=== PATIENT | female | born 1970 | race Caucasian/White ===

== ENCOUNTER 2025-03-26 12:18 | Observation (INO) ==
[2025-03-26] MEDS ORDERED: ONDANSETRON HCL/PF 4 MG/2 ML VIAL ONE (12:45)
[2025-03-26] MEDS ORDERED: 0.9 % SODIUM CHLORIDE 1000 ML 1,000 ML IV ONE (12:45)
--- NOTE | 2025-03-26 12:45 | Emergency Department Note ---
HPI - General Adult General Chief complaint: Altered Mental Status Stated complaint: Dizziness & Nausea Time Seen by Provider: 03/26/25 12:43 Source: patient and EMS Mode of arrival: ambulance Limitations: no limitations History of Present Illness HPI narrative: This is a 54 year old female patient that presents to the ER with c/o dizziness, lower back pain, abdominal pain, N/V and feeling dehydrated. 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 Patient denies any chest pain, SOB, fever, chills, numbness, tingling, weakness or diarrhea Onset (ago): hour(s) (3) Location: Reports back and abdomen Radiation: Reports non-radiation Severity: mild Quality: Reports aching Pain Consistency: Reports constant Relieving factors: Reports none Exacerbating factors: Reports none Associated symptoms: Reports nausea/vomiting Treatments prior to arrival: Reports other (labetalol ) Related Data Previous Rx's Medication Instructions Recorded diclofenac sodium 1 % topical gel 4 g topical QID #50 grams 03/23/25 (Voltaren Arthritis Pain) Allergies Allergy/AdvReac Type Severity Reaction Status Date / Time aspirin Allergy Verified 03/26/25 12:39 ketorolac (From Toradol) AdvReac Mild Vomiting Verified 03/26/25 12:39 Review of Systems Status of ROS 10 or more systems reviewed and unremark able except as noted in history and below Constitutional Denies: fever, chills, change in weight, fatigue, malaise, night sweats or change in sleep pattern Eyes Denies: change in vision, blurry vision, blind spots, light sensitivity, eye discomfort or eye discharge Ears, nose, mouth, and throat Denies: throat pain, neck pain, throat swelling, difficulty swallowing, hoarseness, mouth pain or swelling of lips/tongue Cardiovascular Reports: lightheadedness; Denies: chest pain, palpitations, edema, swelling of feet/ankles or shortness of breath with exertion Respiratory Denies: shortness of breath, cough, wheezing, stridor, pain on inspiration, change in phlegm color or coughing up blood Gastrointestinal Reports: abdominal pain, nausea and vomiting; Denies: coffee grounds in vomit, heartburn, diarrhea, constipation or bloating Genitourinary Denies: painful urination, urinary frequency, urinary urgency, urinary incontinence or blood in urine Musculoskeletal Reports: back pain (lower) Integumentary/Breast Denies: rash, itching, redness, skin pain, skin tenderness, skin swelling, sores or changes in skin color Neurological Reports: dizziness; Denies: headache, numbness in extremities, weakness in extremities, lack of coordination, vertigo or confusion Psychiatric Denies: anxiety, mood swings, panic attacks, change in sleep pattern, hopelessness or loss of interest Endocrine Denies: excessive urination, excessive thirst, fatigue, cold intolerance, excessive sweating or flushing Hematologic/Lymphatic Denies: easy bruising or easy bleeding Allergic/Immunologic Denies: hives, throat swelling, tongue swelling, facial swelling or wheezing PFSH PFSH Medical History Hypertension Hyperlipidemia Chronic back pain Surgical History H/O tubal ligation Social History Smoking status: current every day smoker Non-prescribed substance use: denies use What is your current living situation: I presently have a place to live Problems where you live: no known problems Feel stressed/tense/nervous/anxious/difficulty sleeping: not at all Due to disability, difficulty making decisions: No Exam Constitutional: normal general appearance and no apparent distress Vital Signs - 24 hr 03/26/25 12:18 03/26/25 12:31 03/26/25 13:23 Temperature 98.2 F Pulse Rate 80 76 71 Respiratory Rate 16 20 20 Blood Pressure 165/80 165/80 147/78 Pulse Oximetry 95 93 L 96 Oxygen Delivery Me thod Room Air Room Air Room Air HENMT: normocephalic, head/scalp atraumatic, hearing grossly normal bilaterally, external ears normal, EACs normal, nasal mucous membranes normal, external nose normal, oral mucous membranes normal and oropharynx normal Eyes: PERRL, EOMs intact bilaterally, conjunctivae normal and no scleral icterus Neck/C-Spine: visual inspection normal and trachea midline Lymph: no lymphadenopathy noted Chest: inspection of chest normal Respiratory: breath sounds equal bilaterally, normal respiratory effort, clear to auscultation bilaterally, no wheezes, no rales, no retractions, no use of accessory muscles and chest percussion normal Cardiovascular: normal heart rate noted, regular rhythm noted, no gallop, no rub, no murmur, no JVD, no clicks, peripheral pulses 2+ throughout, no bruits noted and no additional abnormal heart sounds Gastrointestinal: abdomen normal to inspection, abdomen soft to palpation, tender to palpation (diffuse), nontender to percussion, nondistended, normoactive bowel sounds, no hepatosplenomegaly, no masses, no pulsatile mass, no ascites and no hernia Genitourinary: no CVA tenderness Back/Pelvis: spine normal to inspection Extremities: normal to inspection, normal to palpation, no tenderness, full ROM, no joint enlargement and no deformity Neurology: it operations manager II-XII intact, no movement abnormality noted, no focal motor deficit noted, no sensory deficits noted, gait normal, speech normal, coordination normal, no pronator drift noted, no fasciculations noted and GCS normal Psychiatry: mental status grossly normal, oriented x3, thought process normal, cooperative and affect normal Skin: skin color normal Course Course Hospital Course: 1338: due to critically low potassium and N/V will admit patient to the medical floor for further evaluation and treatment. VSS, no s/s of acute distress noted. Patient also sates her lower back is still painful. Vital Signs Vital signs: Vital Signs Temperature 98.2 F 03/26/25 12:18 Pulse Rate 80 03/26/25 12:18 Respiratory Rate 16 03/26/25 12:18 Blood Pressure 165/80 03/26/25 12:18 Pulse Oximetry 95 03/26/25 12:18 Oxygen Delivery Method Room Air 03/26/25 12:18 Temperature 98.2 F 03/26/25 12:18 Pulse Rate 71 03/26/25 13:23 Respiratory Rate 20 03/26/25 13:23 Blood Pressure 147/78 03/26/25 13:23 Pulse Oximetry 96 03/26/25 13:23 Oxygen Delivery Method Room Air 03/26/25 13:23 Medical Decision Making Differential Diagnosis Differential Diagnosis: viral illness Medical Records Medical records reviewed: Yes I reviewed the patient's medical records Lab Data Lab results reviewed: Yes I reviewed the patient's lab results Labs: Lab Results 03/26/25 03/26/25 Range/Units 12:38 13:40 WBC 11.3 H (4.3-9.3) K/uL RBC 4.6 (4.00-5.50) M/uL Hgb 14.1 (12.5-15.8) gm/dL Hct 42.2 (35.9-46.7) % MCV 91.0 (81.0-93.7) fl MCH 30.5 (27.6-32.2) pg MCHC 33.5 (33.1-35.3) g/dl RDW 13.8 (11.4-14.2) % Plt Count 269 (152-353) K/uL MPV 9.2 (6.9-10.8) fl Gran % 82.8 H (47.8-71.3) % Lymph % (Auto) 13.1 L (20.0-43.0) % [place] % (Auto) 3.3 L (3.6-9.8) % Eos % (Auto) 0.5 (0.4-2.8) % Baso % (Auto) 0.3 (0.1-0.85) Lymph # (Auto) 1.5 (1.1-3.1) [place] # (Auto) 0.4 L (1.1-3.1) Eos # (Auto) 0.1 (0.0-0.2) Baso # (Auto) 0.0 (0.0-0.1) Absolute Gran (auto) 9.4 H (2.3-6.0) Sodium 142 (136-145) mmol/L Potassium 2.9 L (3.6-5.2) mmol/L Chloride 107.0 (98-107) mmol/L Carbon Dioxide 25 (21-32) mmol/L Anion Gap 10.0 (4-14) mEq/L BUN 8 (7-18) mg/dL Creatinine 0.9 (0.6-1.3) mg/dL Estimated GFR 75.0 (>59.9) Glucose 124 H (70-110) mg/dL Lactic Acid 1.3 (0.27-1.43) mmol/L Calcium 9.4 (8.5-10.1) mg/dL Total Bilirubin 0.23 (0.0-1.0) mg/dL AST 17 (15-37) U/L ALT 18 L (30-65) U/L Alkaline Phosphatase 122 (50-136) U/L Total Creatine Kinase 150 (26-192) U/L Troponin I High Sens 4.10 (4.0-60.4) ng/L Total Protein 7.1 (6.4-8.2) g/dL Albumin 3.8 (3.4-5.0) g/dL Lipase 33.0 (16.0-77.0) U/L Urine Color Pale yellow (STRAW/YELL.) Urine Appearance Clear (CLEAR) Ur Specific [place] 1.005 (1.001-1.035) Urine Protein Negative (NEGATIVE) Urine Glucose (UA) Normal (NORMAL) Urine Ketones Negative (NEGATIVE) Urine Occult Blood Negative (NEG - TRACE) Urine Nitrite Negative (NEGATIVE) Urine Bilirubin Negative (NEGATIVE) Urine Urobilinogen Normal (NORMAL) Ur Leukocyte Esterase Negative (NEGATIVE) Fluid pH 6.5 (5 - 9) Imaging Data CT scan - head: Attestation: I have reviewed the pertinent imaging results. ECG Data Attestation: I have reviewed the pertinent ECG results. Discharge Plan Discharge Patient Disposition: Admitted As Observation Condition: Stable Clinical Impression: Acute hypokalemia, Dizziness, Low back pain, Nausea and vomiting Time of Disposition: 13:42
[2025-03-26 12:46] LABS: Basophils%(Percent) Auto 0.3 (0.1-0.85); Eosinophils#(Absolute)Auto 0.1 (0.0-0.2); Eosinophils%(Percent) Auto 0.5 % (0.4-2.8); Granulocytes % - Auto 82.8 % (47.8-71.3); Granulocytes#(Absolute)- Auto 9.4 (2.3-6.0); Hematocrit 42.2 % (35.9-46.7); Monocytes #(Absolute)- Auto 0.4 (1.1-3.1); Monocytes %(Percent)- Auto 3.3 % (3.6-9.8); Platelet Count 269 K/uL (152-353); White Blood Count 11.3 K/uL (4.3-9.3)
[2025-03-26] MEDS: ONDANSETRON HCL/PF 4 MG/2 ML VIAL INJ STA ×2 (12:46→13:53)
[2025-03-26] MEDS: 0.9 % SODIUM CHLORIDE 1000 ML 1,000 ML IV STA (12:46)
[2025-03-26 12:56] LABS: Potassium 2.9 mmol/L (3.6-5.2)
[2025-03-26] MEDS ORDERED: ACETAMINOPHEN 500 MG TABLET ONE (12:56)
[2025-03-26] MEDS: ACETAMINOPHEN 500 MG TABLET PO ONE (12:58)
[2025-03-26] MEDS ORDERED: POTASSIUM CL 20 MEQ/100 ML SOL 20 MEQ/100 ML PIGGYBACK IV ONE (13:24)
[2025-03-26] MEDS ORDERED: POTASSIUM CHLORIDE 20 MEQ TAB.ER.PRT ONE (13:25)
[2025-03-26] MEDS: POTASSIUM CHLORIDE 20 MEQ TAB.ER.PRT PO ONE (13:25)
[2025-03-26] MEDS: POTASSIUM CL 20 MEQ/100 ML SOL 20 MEQ/100 ML PIGGYBACK IV ONE (13:26)
[2025-03-26] MEDS ORDERED: POTASSIUM CHLORIDE IN WATER 10 MEQ/100 ML PIGGYBACK IV ONE (13:30)
[2025-03-26 13:49] LABS: PH BODY FLUID EXCP BLOOD 6.5 (5 - 9); Specific Gravity Urine 1.005 (1.001-1.035); Urine Appearance CLEAR (CLEAR); Urine Blood NEGATIVE (NEG - TRACE); Urine Color PALE YELLOW (STRAW/YELL.); Urine Urobilinogen Normal (NORMAL)
[2025-03-26] MEDS: MORPHINE SULFATE 2 MG/ML CARTRIDGE IV ONE (13:53)
[2025-03-26] MEDS ORDERED: POTASSIUM CL 40 MEQ/30 ML 40 MEQ/30 ML LIQUID ONE (16:49)
[2025-03-26] MEDS: POTASSIUM CL 40 MEQ/30 ML 40 MEQ/30 ML LIQUID PO ONE (16:50)
[2025-03-26] MEDS: MORPHINE SULFATE 4 MG/ML CARTRIDGE IVP PRN (20:09)
[2025-03-26] MEDS: ONDANSETRON HCL/PF 4 MG/2 ML VIAL IVP PRN (20:09)
[2025-03-26] MEDS: ORPHENADRINE CITRATE 30 MG/ML VIAL IVP SCH (21:18)
--- NOTE | 2025-03-26 21:45 | Progress Note ---
Progress Note: Subjective Subjective Interval history: I did see this very pleasant but ill-appearing 54 yo female in the ER at the requested of the provider for intractable nausea and vomiting since early this a.m. Patient reports sudden onset abdominal cramping around 6am quickly followed by profound nausea and several episode of emesis as well as low back back. She denies urine frequency or urgency. This afternoon she began noticing palpitations and muscle cramping as well as frequent loose, watery or ill-formed stools She denies any signs of hematemesis or melena. She also denies any chest pain, dyspnea, dizziness or unsteady gait, headache or near-syncope. No one else in the home is ill at this time. She is not diabetic. Labs in the ER indicated K+ 2.9, this was initially treated with a 20mEq K-rider IV and 40mEq PO. EKG indicate some QT-prolongation otherwise NSR. WBC 11.3, Hgb 14, Mg 1.9, Lactic acid 1.3, AGap 10.0, BUN 8, Cre 0.9. Cardiac enzymes were order to assess for possible ACS and returned with trop-I 4.1 (n=4-60), lipase 33. UA indicated no UTI. I did add additional labs including a strep and COVID screen that were also found to be negative. An additional 40mEq PO was ordered for late afternoon and returned with new K+ 4.0. We can withhold further potassium supplement unless this decreases overnight. She was admitted with telemetry, comfort measures, IVFs. Exam Exam: see narrative Constitutional: normal general appearance, no apparent distress and alert Vital Signs - 24 hr 03/26/25 12:18 03/26/25 12:31 03/26/25 13:23 Temperature 98.2 F Pulse Rate 80 76 71 Pulse Rate [Brachi al] Respiratory Rate 16 20 20 Blood Pressure 165/80 165/80 147/78 Blood Pressure [Le ft Arm] Pulse Oximetry 95 93 L 96 Oxygen Delivery Me thod Room Air Room Air Room Air 03/26/25 13:31 03/26/25 13:46 03/26/25 14:01 Temperature Pulse Rate 73 73 67 Pulse Rate [Brachi al] Respiratory Rate 16 16 15 Blood Pressure 158/68 157/79 175/70 Blood Pressure [Le ft Arm] Pulse Oximetry 96 96 96 Oxygen Delivery Me thod Room Air Room Air Room Air 03/26/25 14:31 03/26/25 14:46 03/26/25 15:02 Temperature Pulse Rate 74 67 71 Pulse Rate [Brachi al] Respiratory Rate 15 14 12 Blood Pressure 157/88 99/56 150/67 Blood Pressure [Le ft Arm] Pulse Oximetry 95 94 L [facility] 03/26/25 15:16 03/26/25 16:00 03/26/25 17:00 Temperature Pulse Rate 70 68 72 Pulse Rate [Brachi al] Respiratory Rate 16 16 17 Blood Pressure 120/76 140/73 124/63 Blood Pressure [Le ft Arm] Pulse Oximetry 95 96 96 Oxygen Delivery [facility] Room Air Room Air Room Air 03/26/25 17:30 03/26/25 18:00 03/26/25 18:30 Temperature Pulse Rate Pulse Rate [Brachi al] Respiratory Rate Blood Pressure 135/61 136/65 112/65 Blood Pressure [Le ft Arm] Pulse Oximetry [facility] 03/26/25 19:00 03/26/25 19:18 03/26/25 20:00 Temperature 98.4 F Pulse Rate 68 Pulse Rate [Brachi al] 66 Respiratory Rate 20 21 Blood Pressure 101/65 Blood Pressure [Le ft Arm] 173/85 Pulse Oximetry 96 99 [facility] HENMT: normocephalic oral mucosa tacky Eyes: PERRL, EOMs intact bilaterally and no scleral icterus Neck/C-Spine: visual inspection normal, cervical spine nontender and cervical full ROM noted Lymph: no lymphadenopathy noted Chest: inspection of chest normal Respiratory: breath sounds equal bilaterally and normal respiratory effort Cardiovascular: normal heart rate noted, regular rhythm noted, no gallop, no JVD and peripheral pulses 2+ throughout Gastrointestinal: abdomen soft to palpation, nontender to palpation and no ascites Genitourinary: no CVA tenderness and bladder normal to palpation Back/Pelvis: spine normal to inspection and no paraspinal muscle tenderness noted Extremities: normal to inspection, normal to palpation, no tenderness and full ROM Neurology: web development intern II-XII intact, no focal motor deficit noted, speech normal and GCS normal Psychiatry: mental status grossly normal and affect normal Feel stressed/tense/nervous/anxious/difficulty sleeping: not at all Skin: skin color normal and nails normal Progress Note: Objective Labs Labs: CBC 03/26/25 Range/Units 12:38 WBC 11.3 H (4.3-9.3) K/uL RBC 4.6 (4.00-5.50) M/uL Hgb 14.1 (12.5-15.8) gm/dL Hct 42.2 (35.9-46.7) % Plt Count 269 (152-353) K/uL Gran % 82.8 H (47.8-71.3) % Lymph % (Auto) 13.1 L (20.0-43.0) % [place] % (Auto) 3.3 L (3.6-9.8) % Eos % (Auto) 0.5 (0.4-2.8) % Baso % (Auto) 0.3 (0.1-0.85) Lymph # (Auto) 1.5 (1.1-3.1) [place] # (Auto) 0.4 L (1.1-3.1) Eos # (Auto) 0.1 (0.0-0.2) Baso # (Auto) 0.0 (0.0-0.1) Absolute Gran (auto) 9.4 H (2.3-6.0) CMP 03/26/25 03/26/25 12:38 17:25 Sodium 142 Potassium 2.9 L 4.0 Chloride 107.0 Carbon Dioxide 25 BUN 8 Creatinine 0.9 Glucose 124 H Calcium 9.4 Cardiac Enzymes 03/26/25 12:38 Total Creatine Kinase 150 Liver Function 03/26/25 Range/Units 12:38 Total Bilirubin 0.23 (0.0-1.0) mg/dL AST 17 (15-37) U/L ALT 18 L (30-65) U/L Alkaline Phosphatase 122 (50-136) U/L Albumin 3.8 (3.4-5.0) g/dL Urine 03/26/25 13:40 Urine Color Pale yellow Urine Appearance Clear Ur Specific [place] 1.005 Urine Protein Negative Urine Glucose (UA) Normal Pulse Oximetry SpO2 results: 99% RA Attestation: I have reviewed the pertinent pulse oximetry results. Interpretation: Normal Progress Note: A&P Assessment and Plan (1) Nausea vomiting and diarrhea: Onset Date: ~03/26/25 (2) Hypokalemia due to excessive gastrointestinal loss of potassium: Onset Date: ~03/26/25 Assessment and Plan: Hold additional K+ for now, recheck in a.m. (3) Uncontrolled hypertension: Assessment and Plan: Add Losartan 25mg QD. Consider discontinuation of CCB if proves to have persist LE edema / fluid retention, consider BB i.e. metoprolol SR 25mg BID. (4) Dehydration, moderate: Onset Date: ~03/26/25 Plan IVFs @ 125ml/hr, caution risk of overload from CCB fluid retention. Change in meds as noted Fall risk, precautions Nausea control VS q4h Consider discharge in a.m. Fall Risk Details Johnson Fall Scale Risk Level: Moderate Fall Risk Current Medications: Current Medications Losartan Potassium (Losartan Potassium 50 Mg Tablet) 25 mg PO QDAC SINDY Morphine Sulfate (Morphine Sulfate 4 Mg/Ml Cartridge) 4 mg IVP Q6H PRN PRN Reason: Moderate Pain SCALE 5-7 Last Admin: 03/26/25 20:09 Dose: 4 mg Ondansetron HCl (Ondansetron Hcl/Pf 4 Mg/2 Ml Vial) 4 mg IVP Q6H PRN PRN Reason: Nausea Last Admin: 03/26/25 20:09 Dose: 4 mg Orphenadrine Citrate (Orphenadrine Citrate 30 Mg/Ml Vial) 30 mg IVP Q12H SINDY Last Admin: 03/26/25 21:18 Dose: Not Given Time Spent With Patient Time: Total time spent is greater than 50% in coordination of care (as documented) at patient's floor/unit and/or counseling patient: Time with patient: 25 - 35 minutes
[2025-03-26] MEDS ORDERED: MAGNESIUM, ALUMINUM HYDROXIDE 30 ML ORAL.SUSP PO PRN (22:59)
[2025-03-26] MEDS ORDERED: DOCUSATE SODIUM 100 MG CAPSULE PO PRN (22:59)
[2025-03-26] MEDS ORDERED: ACETAMINOPHEN 500 MG TABLET PO PRN (22:59)
[2025-03-27] MEDS: 0.9 % SODIUM CHLORIDE 1000 ML 1,000 ML IV SCH
[2025-03-27 05:42] LABS: Basophils #(Absolute) Auto 0.1 (0.0-0.1); Basophils%(Percent) Auto 0.7 (0.1-0.85); Eosinophils#(Absolute)Auto 0.3 (0.0-0.2); Eosinophils%(Percent) Auto 3.7 % (0.4-2.8); Granulocytes % - Auto 62.6 % (47.8-71.3); Granulocytes#(Absolute)- Auto 5.2 (2.3-6.0); Hematocrit 41.1 % (35.9-46.7); Mean Corpuscular Volume 92.1 fl (81.0-93.7); Monocytes #(Absolute)- Auto 0.6 (1.1-3.1); Monocytes %(Percent)- Auto 7.6 % (3.6-9.8); Platelet Count 238 K/uL (152-353); White Blood Count 8.4 K/uL (4.3-9.3)
--- NOTE | 2025-03-27 06:44 | History & Physical Report ---
H&P: HPI History of Present Illness Chief complaint: Dizziness & Nausea Narrative: I did see this very pleasant but ill-appearing 54 yo female in the ER at the requested of the provider for intractable nausea and vomiting since early this a.m. Patient reports sudden onset abdominal cramping around 6am quickly followed by profound nausea and several episode of emesis as well as low back back. She denies urine frequency or urgency. This afternoon she began noticing palpitations and muscle cramping as well as frequent loose, watery or ill-formed stools She denies any signs of hematemesis or melena. She also denies any chest pain, dyspnea, dizziness or unsteady gait, headache or near-syncope. No one else in the home is ill at this time. She is not diabetic. Labs in the ER indicated K+ 2.9, this was initially treated with a 20mEq K-rider IV and 40mEq PO. EKG indicate some QT-prolongation otherwise NSR. WBC 11.3, Hgb 14, Mg 1.9, Lactic acid 1.3, AGap 10.0, BUN 8, Cre 0.9. Cardiac enzymes were order to assess for possible ACS and returned with trop-I 4.1 (n=4-60), lipase 33. UA indicated no UTI. I did add additional labs including a strep and COVID screen that were also found to be negative. An additional 40mEq PO was ordered for late afternoon and returned with new K+ 4.0. We can withhold further potassium supplement unless this decreases overnight. She was admitted with telemetry, comfort measures, IVFs. Review of Systems Status of ROS 10 or more systems reviewed and unremark able except as noted in history and below Constitutional Denies: fever, chills, change in weight, fatigue, malaise, night sweats or change in sleep pattern Eyes Denies: change in vision, blurry vision, blind spots, light sensitivity, eye discomfort or eye discharge Ears, nose, mouth, and throat Denies: throat pain, neck pain, throat swelling, difficulty swallowing, hoarseness, mouth pain, swelling of lips/tongue or vertigo Cardiovascular Reports: lightheadedness; Denies: chest pain, palpitations, edema, swelling of feet/ankles or shortness of breath with exertion Respiratory Denies: shortness of breath, cough, wheezing, stridor, pain on inspiration, change in phlegm color or coughing up blood Gastrointestinal Reports: abdominal pain, nausea and vomiting; Denies: coffee grounds in vomit, heartburn, diarrhea, constipation, bloating or difficulty swallowing Genitourinary Denies: painful urination, urinary frequency, urinary urgency, urinary incontinence or blood in urine Musculoskeletal Reports: back pain (lower); Denies: neck pain Integumentary/Breast Denies: rash, itching, redness, skin pain, skin tenderness, skin swelling, sores or changes in skin color Neurological Reports: dizziness; Denies: headache, numbness in extremities, weakness in extremities, lack of coordination, vertigo or confusion Psychiatric Denies: anxiety, mood swings, panic attacks, change in sleep pattern, hopelessness or loss of interest Endocrine Denies: excessive urination, excessive thirst, fatigue, cold intolerance, excessive sweating or flushing Hematologic/Lymphatic Denies: easy bruising or easy bleeding Allergic/Immunologic Denies: hives, throat swelling, tongue swelling, facial swelling or wheezing PFSH PFSH Medical History Hypertension Hyperlipidemia Chronic back pain Surgical History H/O tubal ligation Social History Smoking status: current every day smoker Non-prescribed substance use: denies use What is your current living situation: I presently have a place to live Problems where you live: no known problems Highest level of school completed/degree received: [employer] Feel stressed/tense/nervous/anxious/difficulty sleeping: not at all Due to disability, difficulty making decisions: No Gender Identity: female Meds Home Medications and Allergies Home Medications Medication Instructions Recorded Confirmed Type diclofenac sodium 1 % topical gel 4 g topical QID #50 grams 03/23/25 Rx (Voltaren Arthritis Pain) Allergies Allergy/AdvReac Type Severity Reaction Status Date / Time aspirin Allergy Verified 03/26/25 12:39 ketorolac (From Toradol) AdvReac Mild Vomiting Verified 03/26/25 12:39 Exam Constitutional: normal general appearance and no apparent distress Vital Signs - 24 hr 03/26/25 12:18 03/26/25 12:31 03/26/25 13:23 Temperature 98.2 F Pulse Rate 80 76 71 Pulse Rate [Brachi al] Respiratory Rate 16 20 20 Blood Pressure 165/80 165/80 147/78 Blood Pressure [Le ft Arm] Pulse Oximetry 95 93 L [facility] 03/26/25 13:31 03/26/25 13:46 03/26/25 14:01 Temperature Pulse Rate 73 73 67 Pulse Rate [Brachi al] Respiratory Rate 16 16 15 Blood Pressure 158/68 157/79 175/70 Blood Pressure [Le ft Arm] Pulse Oximetry 96 96 [facility] Room Air 03/26/25 14:31 03/26/25 14:46 03/26/25 15:02 Temperature Pulse Rate 74 67 71 Pulse Rate [Brachi al] Respiratory Rate 15 14 12 Blood Pressure 157/88 99/56 150/67 Blood Pressure [Le ft Arm] Pulse Oximetry 95 94 L 96 Oxygen Delivery [facility] Room Air Room Air Room Air 03/26/25 15:16 03/26/25 16:00 03/26/25 17:00 Temperature Pulse Rate 70 68 72 Pulse Rate [Brachi al] Respiratory Rate 16 16 17 Blood Pressure 120/76 140/73 124/63 Blood Pressure [Le ft Arm] Pulse Oximetry 95 96 [facility] Room Air Room Air 03/26/25 17:30 03/26/25 17:41 03/26/25 18:00 Temperature Pulse Rate Pulse Rate [Brachi al] Respiratory Rate Blood Pressure 135/61 136/65 Blood Pressure [Le ft Arm] Pulse Oximetry [facility] 03/26/25 18:30 03/26/25 19:00 03/26/25 19:18 Temperature Pulse Rate 68 Pulse Rate [Brachi al] Respiratory Rate 20 Blood Pressure 112/65 101/65 Blood Pressure [Le ft Arm] Pulse Oximetry 96 [facility] 03/26/25 20:00 03/27/25 00:30 03/27/25 06:15 Temperature 98.4 F 97.8 F 97.9 F Pulse Rate Pulse Rate [Brachi al] 66 62 66 Respiratory Rate 21 18 20 Blood Pressure Blood Pressure [Le ft Arm] 173/85 167/86 166/70 Pulse Oximetry 99 98 96 Oxygen Delivery Me thod Room Air Room Air Room Air HENMT: normocephalic and head/scalp atraumatic oral mucosa tacky Eyes: PERRL, EOMs intact bilaterally, conjunctivae normal and no scleral icterus Neck/C-Spine: visual inspection normal, trachea midline and cervical full ROM noted Lymph: no lymphadenopathy noted Chest: inspection of chest normal Respiratory: breath sounds equal bilaterally, normal respiratory effort, no wheezes, no rales and no retractions Cardiovascular: normal heart rate noted, regular rhythm noted, no JVD and peripheral pulses 2+ throughout Gastrointestinal: abdomen normal to inspection, abdomen soft to palpation, nondistended and no ascites Genitourinary: no CVA tenderness and bladder normal to palpation Back/Pelvis: spine normal to inspection, no thoracic spine tenderness and no lumbar spine tenderness Extremities: normal to inspection, normal to palpation and full ROM Neurology: lead die molder II-XII intact, no movement abnormality noted, no sensory deficits noted, deep tendon reflexes 2+ bilaterally, speech normal and GCS normal gait not assessed Psychiatry: mental status grossly normal, oriented x3, cooperative and affect normal Feel stressed/tense/nervous/anxious/difficulty sleeping: not at all Skin: skin color normal and no rash no pallor Assessment and Plan Assessment and Plan (1) Nausea vomiting and diarrhea: Onset Date: ~03/26/25 Code(s): R11.2 - Nausea with vomiting, unspecified; R19.7 - Diarrhea, unspecified (2) Hypokalemia due to excessive gastrointestinal loss of potassium: Onset Date: ~03/26/25 Assessment and Plan: Hold additional K+ for now, recheck in a.m. Code(s): E87.6 - Hypokalemia (3) Uncontrolled hypertension: Assessment and Plan: Add Losartan 25mg QD. Consider discontinuation of CCB if proves to have persist LE edema / fluid retention, consider BB i.e. metoprolol SR 25mg BID. Code(s): I10 - Essential (primary) hypertension (4) Dehydration, moderate: Onset Date: ~03/26/25 Code(s): E86.0 - Dehydration Plan IVFs @ 125ml/hr, caution risk of overload from CCB fluid retention. Change in meds as noted Fall risk, precautions Nausea control VS q4h Consider discharge in a.m. Results Labs Labs: CBC 03/26/25 03/27/25 Range/Units 12:38 06:00 WBC 11.3 H 8.4 (4.3-9.3) K/uL RBC 4.6 4.5 (4.00-5.50) M/uL Hgb 14.1 13.7 (12.5-15.8) gm/dL Hct 42.2 41.1 (35.9-46.7) % Plt Count 269 238 (152-353) K/uL Gran % 82.8 H 62.6 (47.8-71.3) % Lymph % (Auto) 13.1 L 25.4 (20.0-43.0) % [place] % (Auto) 3.3 L 7.6 (3.6-9.8) % Eos % (Auto) 0.5 3.7 H (0.4-2.8) % Baso % (Auto) 0.3 0.7 (0.1-0.85) Lymph # (Auto) 1.5 2.1 (1.1-3.1) [place] # (Auto) 0.4 L 0.6 L (1.1-3.1) Eos # (Auto) 0.1 0.3 H (0.0-0.2) Baso # (Auto) 0.0 0.1 (0.0-0.1) Absolute Gran (auto) 9.4 H 5.2 (2.3-6.0) CMP 03/26/25 03/26/25 03/27/25 12:38 17:25 05:50 Sodium 142 141 Potassium 2.9 L 4.0 4.0 Chloride 107.0 110.0 H Carbon Dioxide 25 24 BUN 8 6 L Creatinine 0.9 0.7 Glucose 124 H 97 Calcium 9.4 8.9 Cardiac Enzymes 03/26/25 12:38 Total Creatine Kinase 150 Liver Function 03/26/25 03/27/25 Range/Units 12:38 05:50 Total Bilirubin 0.23 0.31 (0.0-1.0) mg/dL AST 17 23 (15-37) U/L ALT 18 L 17 L (30-65) U/L Alkaline Phosphatase 122 111 (50-136) U/L Albumin 3.8 3.3 L (3.4-5.0) g/dL Urine 03/26/25 13:40 Urine Color Pale yellow Urine Appearance Clear Ur Specific [place] 1.005 Urine Protein Negative Urine Glucose (UA) Normal Pulse Oximetry SpO2 results: 99% RA Imaging Imaging ordered: CT scan - abdomen Attestation: I have reviewed the pertinent imaging results.
[2025-03-27] MEDS: LOSARTAN POTASSIUM 50 MG TABLET PO SCH (08:06)
[2025-03-27] MEDS: ONDANSETRON HCL/PF 4 MG/2 ML VIAL INJ PRN (08:15)
[2025-03-27 08:37] VITALS: BP 134/65; PULSE 67; RESP 19; TEMP 97.5
[2025-03-27] MEDS: PANTOPRAZOLE SODIUM 40 MG VIAL IVP SCH (09:00)
--- NOTE | 2025-03-27 10:10 | Discharge Summary ---
DS: Providers Provider Date of admission: 03/26/25 14:36 Primary care physician: Keira Dumont NP DS: Diagnosis Discharge Diagnosis (1) Drug-seeking behavior: (2) Nausea vomiting and diarrhea: Onset Date: ~03/26/25 (3) Hypokalemia due to excessive gastrointestinal loss of potassium: Onset Date: ~03/26/25 (4) Uncontrolled hypertension: (5) Dehydration, moderate: Onset Date: ~03/26/25 DS: Summary Hospital Course Hospital Course: Ms. Canada was admitted on 03/26/25 from the ED where she presented with dizziness and back pain. CBC unremarkable, CMP she was hypokaelemic at 2.6 and received supplementation. Patient received IVF overnight. On day patient still complained of some dizziness and weakness. She complains of backpain as well. She has been receiving ultram from PCP Evelia. Attempted to fill ultram for 3 day, however it was found that patient recived 240 tablets in the last 30 days filling earlier that 7-8 day supply. Patient oddly requested transfer to different pharmacy concerning ultram rx. Was going to confront patient concerning narcotic findings however she left facility before discussion. Status at Discharge Functional status at discharge: independent ambulation Overall status at discharge: patient is back to baseline Time Spent with Patient Time attestation: Total time spent providing and/or coordinating discharge services: 35 min Time spent: greater than 30 minutes Exam Constitutional: normal general appearance and no apparent distress Vital Signs - 24 hr 03/26/25 12:18 03/26/25 12:31 03/26/25 13:23 Temperature 98.2 F Pulse Rate 80 76 71 Pulse Rate [Brachi al] Respiratory Rate 16 20 20 Blood Pressure 165/80 165/80 147/78 Blood Pressure [Le ft Arm] Pulse Oximetry 95 93 L 96 Oxygen Delivery [facility] Room Air Room Air Room Air 03/26/25 13:31 03/26/25 13:46 03/26/25 14:01 Temperature Pulse Rate 73 73 67 Pulse Rate [Brachi al] Respiratory Rate 16 16 15 Blood Pressure 158/68 157/79 175/70 Blood Pressure [Le ft Arm] Pulse Oximetry 96 96 96 Oxygen Delivery Me [facility]od Room Air Room Air Room Air 03/26/25 14:31 03/26/25 14:46 03/26/25 15:02 Temperature Pulse Rate 74 67 71 Pulse Rate [Brachi al] Respiratory Rate 15 14 12 Blood Pressure 157/88 99/56 150/67 Blood Pressure [Le ft Arm] Pulse Oximetry 95 94 L 96 Oxygen Delivery [facility] Room Air Room Air Room Air 03/26/25 15:16 03/26/25 16:00 03/26/25 17:00 Temperature Pulse Rate 70 68 72 Pulse Rate [Brachi al] Respiratory Rate 16 16 17 Blood Pressure 120/76 140/73 124/63 Blood Pressure [Le ft Arm] Pulse Oximetry 95 96 96 Oxygen Delivery [facility] Room Air Room Air Room Air 03/26/25 17:30 03/26/25 17:41 03/26/25 18:00 Temperature Pulse Rate Pulse Rate [Brachi al] Respiratory Rate Blood Pressure 135/61 136/65 Blood Pressure [Le ft Arm] Pulse Oximetry Oxygen Delivery [facility] Room Air 03/26/25 18:30 03/26/25 19:00 03/26/25 19:18 Temperature Pulse Rate 68 Pulse Rate [Brachi al] Respiratory Rate 20 Blood Pressure 112/65 101/65 Blood Pressure [Le ft Arm] Pulse Oximetry 96 Oxygen Delivery [facility] 03/26/25 20:00 03/27/25 00:30 03/27/25 06:15 Temperature 98.4 F 97.8 F 97.9 F Pulse Rate Pulse Rate [Brachi al] 66 62 66 Respiratory Rate 21 18 20 Blood Pressure Blood Pressure [Le ft Arm] 173/85 167/86 166/70 Pulse Oximetry 99 98 96 Oxygen Delivery [facility] Room Air Room Air Room Air 03/27/25 08:00 Temperature 97.5 F L Pulse Rate Pulse Rate [Brachi al] 67 Respiratory Rate 19 Blood Pressure Blood Pressure [Le ft Arm] 134/65 Pulse Oximetry 96 [facility] HENMT: normocephalic and head/scalp atraumatic oral mucosa tacky Eyes: PERRL, EOMs intact bilaterally, conjunctivae normal and no scleral icterus Neck/C-Spine: visual inspection normal, trachea midline and cervical full ROM noted Lymph: no lymphadenopathy noted Chest: inspection of chest normal Respiratory: breath sounds equal bilaterally, normal respiratory effort, no wheezes, no rales and no retractions Cardiovascular: normal heart rate noted, regular rhythm noted, no JVD and peripheral pulses 2+ throughout Gastrointestinal: abdomen normal to inspection, abdomen soft to palpation, nondistended and no ascites Genitourinary: no CVA tenderness and bladder normal to palpation Back/Pelvis: spine normal to inspection, no thoracic spine tenderness and no lumbar spine tenderness Extremities: normal to inspection, normal to palpation and full ROM Neurology: zipper ironer II-XII intact, no movement abnormality noted, no sensory deficits noted, deep tendon reflexes 2+ bilaterally, speech normal and GCS normal gait not assessed Psychiatry: mental status grossly normal, oriented x3, cooperative and affect normal Feel stressed/tense/nervous/anxious/difficulty sleeping: not at all Skin: skin color normal and no rash no pallor DS: Data Data Completed and Pending Labs on day of discharge: Labs from last 24 hours 03/27/25 03/27/25 03/26/25 06:00 05:50 17:25 WBC 8.4 RBC 4.5 Hgb 13.7 Hct 41.1 MCV 92.1 MCH 30.6 MCHC 33.2 RDW 13.8 Plt Count 238 MPV 9.4 Gran % 62.6 Lymph % (Auto) 25.4 [place] % (Auto) 7.6 Eos % (Auto) 3.7 H Baso % (Auto) 0.7 Lymph # (Auto) 2.1 [place] # (Auto) 0.6 L Eos # (Auto) 0.3 H Baso # (Auto) 0.1 Absolute Gran (auto) 5.2 Sodium 141 Potassium 4.0 4.0 Chloride 110.0 H Carbon Dioxide 24 Anion Gap 7.0 BUN 6 L Creatinine 0.7 Estimated GFR 101.4 Glucose 97 Lactic Acid Calcium 8.9 Magnesium Total Bilirubin 0.31 AST 23 ALT 17 L Alkaline Phosphatase 111 Total Creatine Kinase Troponin I High Sens Total Protein 6.5 Albumin 3.3 L Lipase Urine Color Urine Appearance Ur Specific [place] Urine Protein Urine Glucose (UA) Urine Ketones Urine Occult Blood Urine Nitrite Urine Bilirubin Urine Urobilinogen Ur Leukocyte Esterase Fluid pH COVID-19 ([facility]) Streptococcus Screen 03/26/25 03/26/25 03/26/25 16:20 13:40 12:38 WBC 11.3 H RBC 4.6 Hgb 14.1 Hct 42.2 MCV 91.0 MCH 30.5 MCHC 33.5 RDW 13.8 Plt Count 269 MPV 9.2 Gran % 82.8 H Lymph % (Auto) 13.1 L [place] % (Auto) 3.3 L Eos % (Auto) 0.5 Baso % (Auto) 0.3 Lymph # (Auto) 1.5 [place] # (Auto) 0.4 L Eos # (Auto) 0.1 Baso # (Auto) 0.0 Absolute Gran (auto) 9.4 H Sodium 142 Potassium 2.9 L Chloride 107.0 Carbon Dioxide 25 Anion Gap 10.0 BUN 8 Creatinine 0.9 Estimated GFR 75.0 Glucose 124 H Lactic Acid 1.3 Calcium 9.4 Magnesium 1.9 Total Bilirubin 0.23 AST 17 ALT 18 L Alkaline Phosphatase 122 Total Creatine Kinase 150 Troponin I High Sens 4.10 Total Protein 7.1 Albumin 3.8 Lipase 33.0 Urine Color Pale yellow Urine Appearance Clear Ur Specific [place] 1.005 Urine Protein Negative Urine Glucose (UA) Normal Urine Ketones Negative Urine Occult Blood Negative Urine Nitrite Negative Urine Bilirubin Negative Urine Urobilinogen Normal Ur Leukocyte Esterase Negative Fluid pH 6.5 COVID-19 ([facility]) Not detected Streptococcus Screen Negative Discharge Plan Discharge Disposition: Home, Self-Care Condition: Stable Discharge Medications: New ondansetron HCl 4 mg tablet 4 mg PO Q8H PRN (Reason: nausea and vomiting) Qty: 10 0RF Continued diclofenac sodium [Voltaren Arthritis Pain] 1 % gel 4 g topical QID Qty: 50 1RF Rx Instructions: apply to single knee, ankle, foot; for foot includes sole/toes/top of foot alprazolam 0.5 mg tablet 0.5 mg PO .at bedtime PRN (Reason: anxiety) Patient Comments: TAKE ONE TABLET BY MOUTH AT BEDTIME amlodipine 10 mg tablet 10 mg PO QDAY Patient Comments: TAKE ONE TABLET BY MOUTH DAILY meloxicam 7.5 mg tablet 7.5 mg PO BID Patient Comments: TAKE ONE TABLET BY MOUTH TWICE DAILY. DON'T START MELOXICAM UNTIL FINISHED WITH MEDROL PACK tramadol 50 mg tablet 100 mg PO BID PRN (Reason: pain) Patient Comments: TAKE TWO TABLETS BY MOUTH TWICE DAILY albuterol sulfate 90 mcg/actuation HFA aerosol inhaler See Rx Instructions INHALATION .COMPLEX Patient Comments: INHALE ONE TO TWO PUFFS into lungs BY MOUTH EVERY 4 TO 6 HOURS NEEDED Rx Instructions: Inhale 1 to 2 puffs by mouth every 4 to 6 hours as needed alprazolam 0.5 mg tablet 0.5 mg PO .[facility] Patient Comments: TAKE ONE TABLET BY MOUTH AT BEDTIME tramadol 50 mg tablet 100 mg PO BID Patient Comments: TAKE TWO TABLETS BY MOUTH TWICE DAILY amlodipine 10 mg tablet 10 mg PO DAILY Patient Comments: TAKE ONE TABLET BY MOUTH DAILY Discharge Orders: Discharge Order (Routine); Ordered 03/27/25 Ordered By: Wellington Reinoso Interventions: Discharge Assessment Last Done: 03/27/25 09:51 MED/SURG & ICU Observation Charge Sheet Last Done: 03/27/25 10:54 Patient Instructions: Dehydration (DC), Hypokalemia (ED) Forms: Portal/Health Info Access Inst Follow-Ups: Keira Dumont NP [Primary Care Provider] Rahcna Altamirano NP [Referring] - 04/03/25 10:20 am Discharge Date/Time: 03/27/25 11:05
== END 2025-03-27 11:05 | disposition home or self-care (01) ==
LOC: ED 12:18 → MS 12:18
PROVIDERS: ADMIT Physician Assistant Medical; ATTEND Physician Assistant Medical
DX: Z76.5 Malingerer [conscious simulation]; R19.7 Diarrhea, unspecified; Z79.899 Other long term (current) drug therapy; F17.200 Nicotine dependence, unspecified, uncomplicated; E87.6 Hypokalemia; R42 Dizziness and giddiness; Z79.1 Long term (current) use of non-steroidal anti-inflammatories (NSAID); I10 Essential (primary) hypertension; E86.0 Dehydration; E78.5 Hyperlipidemia, unspecified; Z88.6 Allergy status to analgesic agent; R11.2 Nausea with vomiting, unspecified